=== PATIENT | female | born 1965 | race African-American/Black ===

== ENCOUNTER 2021-06-27 02:59 | Emergency (ER) | payer SELFPAY ==
[~2021-06-27] VITALS: Ht 167.6 cm; Wt 59.1 kg
[2021-06-27 03:04] VITALS: TEMP 98.9
[2021-06-27 04:17] LABS: HEMATOCRIT 44.2 % (37.0-47.0); HEMOGLOBIN 15.2 g/dl (12.5-16.0); MEAN CELL VOLUME 76 fl (80.0-100.0); MEAN CORPUSCULAR HEMOGLOBIN 26 pg (27.0-31.0); MEAN CORPUSCULAR HGB CONC 34 g/dl (33.0-37.0); MEAN PLATELET VOLUME 10.6 fl (7.4-10.4); PLATELET COUNT 223 K/mm3 (130-400); RED BLOOD COUNT 5.83 M/mm3 (4.10-5.30); REDCELL DISTRIBUTION WIDTH-CV 14.6 % (11.5-14.5)
[2021-06-27 04:27] LABS: ALANINE AMINOTRANSFERASE 35 U/L (4-34); ALBUMIN 4.8 gm/dL (3.5-5.0); ALCOHOL(ethanol),MEDICAL < 10 mg/dL; ALKALINE PHOSPHATASE 118 U/L (50-136); ANION GAP 12 mmol/L (7-16); AST,SGOT 54 U/L (15-37); BILIRUBIN,TOTAL 0.6 mg/dL (0.0-1.0); BLOOD UREA NITROGEN 5 mg/dL (7-17); CALCIUM 9.7 mg/dL (8.4-10.2); CARBON DIOXIDE 29 mmol/L (22-30); CHLORIDE 98 mmol/L (98-107); CREATININE, serum 0.54 (0.52-1.25); GLUCOSE 153 mg/dL (74-106); LIPASE 40 U/L (23-300); SODIUM 138 mmol/L (137-145); TOTAL PROTEIN 10.6 gm/dL (6.4-8.2)
[2021-06-27 04:44] LABS: BAND 1 % (0-10); LYMPHOCYTE 6 % (20.0-51.0); NEUTROPHILS 93 % (42.0-75.2); PLATELET ESTIMATE NORMAL (NORMAL)
[2021-06-27] MEDS ORDERED: ZOFRAN ODT4 MG PO (05:38)
[2021-06-27 06:51] VITALS: BP 220/140
[2021-06-27] MEDS ORDERED: CATAPRES 0.1MG0.1 MG PO (07:23)
[2021-06-27 07:30] VITALS: PULSE 85
== END 2021-06-27 07:30 | disposition home or self-care (01) ==
LOC: COL.ER 02:59
PROVIDERS: Personal Emergency Response Attendant
DX: F11.23 Opioid dependence with withdrawal (principal)
CPT/HCPCS: J1790; J2060; J2405; J3480; J7030

== ENCOUNTER 2021-07-10 06:57 | Emergency (ER) | payer SELFPAY ==
[~2021-07-10] VITALS: Ht 165.1 cm; Wt 58.2 kg
[~2021-07-10 06:57] MED LIST: CATAPRES 0.1MG0.1 MG PO; ZOFRAN ODT4 MG PO
[2021-07-10 07:04] VITALS: TEMP 98.3
[2021-07-10 07:19] LABS: BASO # 0.1 (0.0-0.2); BASO % 0.5 % (0.0-2.0); EOS # 0.2 (0.0-0.7); EOS % 1.6 % (0-4.0); GRAN # 10.3 (1.4-6.5); GRAN % 79.7 % (42.2-75.2); HEMATOCRIT 42.3 % (37.0-47.0); HEMOGLOBIN 14.4 g/dl (12.5-16.0); LYMPH # 1.7 (1.2-3.4); LYMPH % 13.3 % (20.0-51.0); MEAN CELL VOLUME 77 fl (80.0-100.0); MEAN CORPUSCULAR HEMOGLOBIN 26 pg (27.0-31.0); MEAN CORPUSCULAR HGB CONC 34 g/dl (33.0-37.0); MEAN PLATELET VOLUME 10.6 fl (7.4-10.4); MONO # 0.6 (0.1-0.6); MONO % 4.6 % (1.7-9.3); PLATELET COUNT 224 K/mm3 (130-400); REDCELL DISTRIBUTION WIDTH-CV 15.5 % (11.5-14.5)
[2021-07-10 07:29] LABS: ALANINE AMINOTRANSFERASE 48 U/L (4-34); ALBUMIN 3.9 gm/dL (3.5-5.0); ALKALINE PHOSPHATASE 104 U/L (50-136); ANION GAP 5 mmol/L (7-16); AST,SGOT 50 U/L (15-37); BILIRUBIN,TOTAL 0.6 mg/dL (0.0-1.0); BLOOD UREA NITROGEN 10 mg/dL (7-17); CALCIUM 8.9 mg/dL (8.4-10.2); CARBON DIOXIDE 30 mmol/L (22-30); CHLORIDE 106 mmol/L (98-107); CREATININE, serum 0.61 (0.52-1.25); GLUCOSE 99 mg/dL (74-106); POTASSIUM 4.2 mmol/L (3.4-5.0); SODIUM 140 mmol/L (137-145)
[2021-07-10 07:49] LABS: TROPONIN-I < 0.012 ng/mL (0.000-0.035)
[2021-07-10] MEDS ORDERED: PREDNISONE50 MG PO (08:35)
[2021-07-10] MEDS ORDERED: PROAIR HFA0.09 MG/AC IH (08:35)
[2021-07-10 08:50] VITALS: BP 164/103; PULSE 70
[2021-07-10] MEDS ORDERED: PHENOBARBITAL 330 MG PO (20:53)
[2021-07-10] MEDS ORDERED: DILANTIN 100MG100 MG PO (21:01)
== END 2021-07-10 08:52 | disposition home or self-care (01) ==
LOC: COL.ER 06:57
PROVIDERS: Emergency Medicine
DX: J45.901 Unspecified asthma with (acute) exacerbation (principal); E11.9 Type 2 diabetes mellitus without complications; I10 Essential (primary) hypertension; Z20.822 Contact with and (suspected) exposure to COVID-19
CPT/HCPCS: J2930; J3475

== ENCOUNTER 2021-07-10 18:50 | Inpatient (IN) | payer SELFPAY ==
[~2021-07-10] VITALS: Ht 172.7 cm; Wt 65.9 kg
[~2021-07-10 18:50] MED LIST changes: +PREDNISONE50 MG PO; +PROAIR HFA0.09 MG/AC IH
[2021-07-10 19:41] LABS: HEMATOCRIT 41.2 % (37.0-47.0); MEAN CELL VOLUME 76 fl (80.0-100.0); MEAN CORPUSCULAR HEMOGLOBIN 26 pg (27.0-31.0); MEAN CORPUSCULAR HGB CONC 34 g/dl (33.0-37.0); MEAN PLATELET VOLUME 9.7 fl (7.4-10.4); PLATELET COUNT 216 K/mm3 (130-400); RED BLOOD COUNT 5.43 M/mm3 (4.10-5.30); REDCELL DISTRIBUTION WIDTH-CV 15.3 % (11.5-14.5)
[2021-07-10 19:54] LABS: ALBUMIN 4.1 gm/dL (3.5-5.0); ALKALINE PHOSPHATASE 100 U/L (50-136); ANION GAP 10 mmol/L (7-16); AST,SGOT 41 U/L (15-37); BILIRUBIN,TOTAL 0.4 mg/dL (0.0-1.0); BLOOD UREA NITROGEN 7 mg/dL (7-17); CALCIUM 9.3 mg/dL (8.4-10.2); CARBON DIOXIDE 27 mmol/L (22-30); CHLORIDE 104 mmol/L (98-107); CREATININE, serum 0.55 (0.52-1.25); GLUCOSE 122 mg/dL (74-106); POTASSIUM 3.6 mmol/L (3.4-5.0); SODIUM 141 mmol/L (137-145); TOTAL PROTEIN 8.2 gm/dL (6.4-8.2)
[2021-07-10 19:56] LABS: C-REACTIVE PROTEIN < 0.5 mg/dL (0.0-0.9)
[2021-07-10 19:58] LABS: ALANINE AMINOTRANSFERASE 45 U/L (4-34)
[2021-07-10 20:05] LABS: BASOPHIL 2 % (0-2); LYMPHOCYTE 3 % (20.0-51.0); NEUTROPHILS 94 % (42.0-75.2); PLATELET ESTIMATE NORMAL (NORMAL)
[2021-07-10 20:06] LABS: ANISOCYTOSIS 1+; MICROCYTOSIS 1+
[2021-07-10 20:07] LABS: TROPONIN-I < 0.012 ng/mL (0.000-0.035)
[2021-07-10 20:33] LABS: PROLACTIN 25.9 ng/mL (3.0-18.6)
[2021-07-10] MEDS ORDERED: PHENOBARBITAL 330 MG PO (20:53)
[2021-07-10] MEDS ORDERED: DILANTIN 100MG100 MG PO (21:01)
[2021-07-10 22:56] VITALS: BP 185/110; PULSE 86; TEMP 98.3
--- NOTE | 2021-07-10 23:29 | NUR ---
Pt. to the floor via stretcher. Pt. able to slide self from stretcher to bed with minimal assistance. Pt. was incontinent, pericare provided. Pt. denies pain. Pt. is very drowsy but does arouse to touch stimuli but falls back to sleep quickly. Respirations are equal and unlabored. Notable wheezes bilaterally. Pt. denies further needs at this time. Call light within reach. Seizure precautions in place.
[2021-07-10 23:30] VITALS: BP 160/92; PULSE 93
[2021-07-10 23:56] VITALS: BP 174/103; PULSE 93
[2021-07-11] VITALS (7 sets, daily range): BP systolic 157–183; BP diastolic 93–108; PULSE 81–101; TEMP 97.4–99
--- NOTE | 2021-07-11 09:35 | NUR ---
PT SLEEPING IN BED. PT PRESENTS WITH SOLORIO PERSONALITY. IMPATIENT WITH ALL STAFF. REMINDED PT THAT THE KITCHEN HAS TO PREPARE MANY MEALS AND A 30 MIN WAIT SHOULD BED EXPECTED. PT WAS NOT HAPPY WITH THIS. EXPLAINED THAT FAMILY IS ALLOWED TO PROVIDED FOOD IF THEY WOULD LIKE AT TIMES THAT PT WOULD LIKE. PT VERBALIZED UNDERSTANDING.
--- NOTE | 2021-07-11 09:52 | NUR ---
dish room worker met with patient to discuss discharge plan. Patient recently moved here from [place] and is living with her daughter Wilda [phone] and grandchildren. Patient reports that she does not use any medical equipment to assist with mobility and does not use oxygen at home. Patient has not established a PCP in [place] yet. Educated her that we will set her up with Stacie and that this rn social work will get with the financial counselor about starting the process for a a financial assistance application. Patient reports that she had [place] and has not started the process for applying in [place]. Educated the patient that the financial counselor will be able to assist with starting one for [place]. No other concerns reported at this time. Patient states she feels like she needs an Albuterol treatment. Nurse notified. *Discharge plan: Home with daughter*
[2021-07-11 12:56] LABS: COLLECTION METHOD CLEAN CATCH
[2021-07-11 13:04] LABS: MUCOUS Present /lpf; PH 6 (5-8); URINE APPEARANCE Hazy; URINE BACTERIA None Seen /hpf; URINE BILIRUBIN Negative (NEGATIVE); URINE BLOOD Negative (NEGATIVE); URINE COLOR Yellow; URINE GLUCOSE 1+ (NEGATIVE); URINE KETONE Negative (NEGATIVE); URINE LEUKOCYTE ESTERASE 1+ (NEGATIVE); URINE NITRATE Negative (NEGATIVE); URINE PROTEIN(semi-quant) 1+ (NEGATIVE); URINE UROBILINOGEN Negative (NEGATIVE)
[2021-07-11 13:13] LABS: TRICYCLIC ANTIDEPRESS URINE NEGATIVE
--- NOTE | 2021-07-11 20:00 | NUR ---
PATIENT IS ALERT AND ORIENTED X4 BUT DROWSY. PATIENT IS ON DROPLET PRECAUTIONS FOR RHINOVIRUS. PATIENT ON AHA DIET, TELE, AND SEIZURE PRECAUTIONS. PATIENT HAS COUGH AND SOME SHORTNESS OF BREATH AND CRACKELS IN ALL LUNG [place]. PATIENT HAS IV TO LEFT FOREARM. PATIENT DENIES PAIN OR FURTHER NEEDS AT THIS TIME. CALLL LIGHT WITHIN REACH. PATIENT READY FOR BED. HEAD TO TOE ASSESSMENT COMPLETE.
--- NOTE | 2021-07-12 08:00 | NUR ---
Patient is upset about her night and her stay. She stated that she is not getting her treatments like she should. She stated she is going to just leave and go home. Spoke with Lisbeth WHITTINGTON about the situation, she stated they will round on her first. Patient stated that she called several times during the night for breathing treatments and that nobody showed up. Attempted to speak with her and she was on the phone yelling about how she just wants to go home. The diathermy equipment repairer Amanda spoke with her and removed her IV. Patient agreed to wait to leave until the doctor has seen her. No other changes at this time. Call light within reach.
[2021-07-12] MEDS ORDERED: ZESTRIL 10MG10 MG PO (08:07)
[2021-07-12] MEDS ORDERED: ZOFRAN ODT4 MG PO (08:09)
[2021-07-12] MEDS ORDERED: PREDNISONE10 MG PO (09:31)
--- NOTE | 2021-07-12 09:41 | NUR ---
Mayi called mary to asked about financial assistance application. She informed me that they will begin her application today. Mayi called [employer] to see if they could give the pt a neublizer machince pending fiancial applications. They informed Sw that they will fax me a hardship application for the pt to complete and then they could provide her one. Sw waiting on fax.
--- NOTE | 2021-07-12 10:20 | NUR ---
Discharge instructions discussed with patient and her daughter. She did not want to listin to the instructions. She had her daughter sign the paper work because she could not see the papers without her glasses. She asked about an inhaler, she stated she brought one with her but did not get it back. Called to pharmacy and [facility] to see if they had it, they did not. She said it was EMS who took it from her. Explained she has a prescription to get filled. Explained when follow up appointment is. Social work spoke with the daughter about the nebulizer. No questions verbalized. All belongings packed up by patient and her daughter. Patient walked out via wheel chair by Lupis HERZOG.
[2021-07-12] MEDS ORDERED: PROAIR HFA0.09 MG/AC IH (10:23)
== END 2021-07-12 10:30 | disposition home or self-care (01) | DRG 203 ==
LOC: COL.ER 18:50 → SURG 20:22
PROVIDERS: Emergency Medicine; Student in an Organized Health Care Education/Training Program; ADMIT Student in an Organized Health Care Education/Training Program
DX: J45.901 Unspecified asthma with (acute) exacerbation (principal); B34.8 Other viral infections of unspecified site; G40.909 Epilepsy, unspecified, not intractable, without status epilepticus; I10 Essential (primary) hypertension; B34.1 Enterovirus infection, unspecified; R51.9 Headache, unspecified
CPT/HCPCS: 99223-AI; 99232-AI; 99239; J0360; J1650; J1885; J2930; J7030

== ENCOUNTER 2022-04-07 00:01 | Emergency (ER) | payer SELFPAY ==
[~2022-04-07] VITALS: Ht 165.1 cm; Wt 61.4 kg
[~2022-04-07 00:01] MED LIST changes: +DILANTIN 100MG100 MG PO; +PHENOBARBITAL 330 MG PO; +PREDNISONE10 MG PO; +ZESTRIL 10MG10 MG PO
[2022-04-07 00:04] VITALS: TEMP 96.7
[2022-04-07 00:26] LABS: BASO # 0.1 K/mm3 (0.0-0.2); BASO % 0.6 % (0.0-2.0); EOS # 0.2 K/mm3 (0.0-0.7); EOS % 1.3 % (0.0-4.0); GRAN # 9.7 K/mm3 (1.4-6.5); GRAN % 71.7 % (42.2-75.2); HEMATOCRIT 37.4 % (37.0-47.0); HEMOGLOBIN 12.6 g/dl (12.5-16.0); LYMPH # 2.9 K/mm3 (1.2-3.4); LYMPH % 21.5 % (20.0-51.0); MEAN CELL VOLUME 81 fl (80.0-100.0); MEAN CORPUSCULAR HEMOGLOBIN 27 pg (27-31); MEAN CORPUSCULAR HGB CONC 34 g/dl (33.0-37.0); MEAN PLATELET VOLUME 10.2 fl (7.4-10.4); MONO # 0.6 K/mm3 (0.1-0.6); MONO % 4.5 % (1.7-9.3); PLATELET COUNT 218 K/mm3 (130-400); RED BLOOD COUNT 4.63 M/mm3 (4.10-5.30); REDCELL DISTRIBUTION WIDTH-CV 16.1 % (11.5-14.5)
[2022-04-07 00:39] LABS: COLLECTION METHOD CLEAN CATCH
[2022-04-07 00:47] LABS: ALANINE AMINOTRANSFERASE 59 U/L (0-55); ALBUMIN 3.9 gm/dL (3.5-5.0); ALKALINE PHOSPHATASE 98 U/L (40-150); ANION GAP 15 mmol/L (7-16); AST,SGOT 48 U/L (5-34); BILIRUBIN,TOTAL 0.4 mg/dL (0.2-1.2); BLOOD UREA NITROGEN 12 mg/dL (10-20); CALCIUM 8.7 mg/dL (8.4-10.2); CARBON DIOXIDE 24 mmol/L (22-29); CHLORIDE 103 mmol/L (98-107); CREATININE, serum 0.95 mg/dL (0.57-1.11); GLUCOSE 183 mg/dL (70-99); LIPASE 16 U/L (8-78); SODIUM 142 mmol/L (136-145); TOTAL PROTEIN 8.3 gm/dL (6.2-8.1)
[2022-04-07 00:50] LABS: MUCOUS Present (NOT PRESENT); PH 5 (5-8); SQUAMOUS EPITHELIAL None Seen /hpf (0-10); URINE APPEARANCE Hazy (CLEAR/HAZY); URINE BACTERIA None Seen /hpf (NONE SEEN); URINE BILIRUBIN Negative (NEGATIVE); URINE BLOOD 1+ (NEGATIVE); URINE COLOR Yellow (YELLOW); URINE GLUCOSE Negative (NEGATIVE); URINE KETONE Negative (NEGATIVE); URINE LEUKOCYTE ESTERASE Negative (NEGATIVE); URINE NITRATE Negative (NEGATIVE); URINE PROTEIN(semi-quant) 2+ (NEGATIVE); URINE RBC 0-2 /hpf (0-2); URINE UROBILINOGEN Negative (NEGATIVE)
[2022-04-07 00:54] LABS: TRICYCLIC ANTIDEPRESS URINE NEGATIVE
[2022-04-07 00:55] LABS: ALCOHOL(ethanol),MEDICAL < 10 mg/dL (0-10); TROPONIN-I < 0.010 ng/mL (0.00-0.033)
[2022-04-07] MEDS ORDERED: CATAPRES 0.1MG0.1 MG PO (03:30)
[2022-04-07] MEDS ORDERED: PRINIVIL10 MG PO (03:30)
[2022-04-07 03:49] VITALS: BP 140/96; PULSE 56
== END 2022-04-07 03:50 | disposition home or self-care (01) ==
LOC: COL.ER 00:01
PROVIDERS: Emergency Medicine
DX: I10 Essential (primary) hypertension (principal); R41.0 Disorientation, unspecified; Z20.822 Contact with and (suspected) exposure to COVID-19; Z91.14 Patient's other noncompliance with medication regimen; Z79.899 Other long term (current) drug therapy
CPT/HCPCS: J1885; J2765; J7120

== ENCOUNTER 2023-03-04 21:59 | Emergency (ER) | payer MEDICAID ==
[~2023-03-04] VITALS: Ht 165.1 cm; Wt 61.4 kg
[~2023-03-04 21:59] MED LIST changes: +PRINIVIL10 MG PO
[2023-03-04 22:11] VITALS: TEMP 98.2
[2023-03-04 22:23] LABS: COLLECTION METHOD CLEAN CATCH
[2023-03-04 22:29] LABS: URINE APPEARANCE Cloudy (CLEAR/HAZY); URINE COLOR Red (YELLOW); URINE GLUCOSE 1+ (NEGATIVE); URINE KETONE Negative (NEGATIVE); URINE NITRATE Negative (NEGATIVE); URINE PROTEIN(semi-quant) 3+ (NEGATIVE)
[2023-03-04 22:30] LABS: URINE BLOOD 3+ (NEGATIVE)
[2023-03-04 22:32] LABS: MUCOUS Present (NOT PRESENT); SQUAMOUS EPITHELIAL 0-2 /hpf (0-10); URINE BACTERIA None Seen /hpf (NONE SEEN); URINE RBC >50 /hpf (0-2)
[2023-03-04 22:36] LABS: TRICYCLIC ANTIDEPRESS URINE NEGATIVE
[2023-03-04 22:48] LABS: BASO # 0.1 K/mm3 (0.0-0.2); BASO % 0.3 % (0.0-2.0); EOS % 0.1 % (0.0-4.0); GRAN # 12.9 K/mm3 (1.4-6.5); GRAN % 84.6 % (42.2-75.2); HEMATOCRIT 41.4 % (37.0-47.0); HEMOGLOBIN 14.1 g/dl (12.5-16.0); LYMPH # 1.5 K/mm3 (1.2-3.4); MEAN CELL VOLUME 80 fl (80.0-100.0); MEAN CORPUSCULAR HEMOGLOBIN 27 pg (27-31); MEAN CORPUSCULAR HGB CONC 34 g/dl (33.0-37.0); MEAN PLATELET VOLUME 10.5 fl (7.4-10.4); MONO # 0.7 K/mm3 (0.1-0.6); MONO % 4.5 % (1.7-9.3); PLATELET COUNT 190 K/mm3 (130-400); RED BLOOD COUNT 5.19 M/mm3 (4.10-5.30); REDCELL DISTRIBUTION WIDTH-CV 15.5 % (11.5-14.5)
[2023-03-04 22:58] LABS: INR 1.2 (0.8-3.0); PROTHROMBIN TIME 13.2 SECONDS (9.7-12.8)
[2023-03-04 23:07] LABS: ALANINE AMINOTRANSFERASE 38 U/L (0-55); ALBUMIN 4.3 gm/dL (3.5-5.0); ALKALINE PHOSPHATASE 101 U/L (40-150); ANION GAP 14 mmol/L (7-16); AST,SGOT 39 U/L (5-34); BILIRUBIN,TOTAL 0.4 mg/dL (0.2-1.2); BLOOD UREA NITROGEN 10 mg/dL (10-20); CALCIUM 9.7 mg/dL (8.4-10.2); CARBON DIOXIDE 24 mmol/L (22-29); CHLORIDE 102 mmol/L (98-107); GLUCOSE 270 mg/dL (70-99); POTASSIUM 3.7 mmol/L (3.5-4.5); SODIUM 140 mmol/L (136-145)
[2023-03-04 23:10] LABS: ALCOHOL(ethanol),MEDICAL < 10 mg/dL (0-10)
[2023-03-05] VITALS: BP 204/121; PULSE 112
== END 2023-03-05 00:15 | disposition left against medical advice (07) ==
LOC: COL.ER 21:59
PROVIDERS: Emergency Medicine
DX: I10 Essential (primary) hypertension (principal)
CPT/HCPCS: J0360; J2405

== ENCOUNTER 2023-03-05 10:32 | Emergency (ER) | payer MEDICAID | END 2023-03-05 15:54 | disposition left against medical advice (07) | LOC: COL.ER 10:32 | DX: R40.4 Transient alteration of awareness (principal); Z28.310 Unvaccinated for COVID-19 ==